=== PATIENT | male | born 1960 | race Caucasian/White ===

== ENCOUNTER 2022-12-23 13:38 | Emergency (ER) | payer OTHER ==
--- OUTSIDE RECORDS SUMMARY | 2022-12-23 13:42 | XMS REPORT | Continuity of Care Document ---
:1960 Author Organization [facility] t Address [address] [place] [place] [address] Care Team Providers Name Role Phone Asked, No Pcp Primary Care Physician Unavailable Speedy Hong Attending Clinician Unavailable STEPHANY PHILLIPS Attending Clinician Unavailable MICHAEL CASEY Attending Clinician Unavailable VIRA MAYBERRY Attending Clinician Unavailable WILLIAM NAGEL M.D. Attending Clinician Unavailable MAGY ECHEVARRIA LCSW Attending Clinician Unavailable [facility] WAITE Attending Clinician Unavailable CHASE EL M.D. Attending Clinician Unavailable RADHA MADRID M.D. Attending Clinician Unavailable ROBERTO RICH M.D. Attending Clinician Unavailable CHEKO THOMPSON M.D. Attending Clinician Unavailable CHASE AVILES Attending Clinician Unavailable KNOW, DOES_NOT Admitting Clinician Unavailable MICHAEL CASEY Admitting Clinician Unavailable Payers Payer Name Policy Type Policy Number Effective Date Expiration Date S ource Problems Condition Condition Condition Status Onset Resolution Last Treating Co mments Source Name Details Category Date Date Treatment Clinician Date REF BY REF BY Diagnosis Active 2018-03-20 Jose Armando EL 02-15 09:47:00 cate Active 00:00: Jayme 02/15/[address] [facility] BDDC- BDDC- Diagnosis Active 2018-02-14 Mem oria ABDOMINAL ABDOMINAL 01-23 11:25:00 l PAIN, PAIN, 00:00: Jayme BLOATING, BLOATING, 00 DIARRHEA DIARRHEA Active 01/23/[address] [facility] R97.20 - R97.20 - Diagnosis Active 2018-05-16 Memoria ELEVATED ELEVATED 01-21 12:10:00 l PROSTATE PROSTATE 00:01: Gustavo n SPECIFIC SPECIFIC 00 ANT ANT Active 01/21/2018 [facility] DIVERTICUL DIVERTICU Diagnosis Active 2018-01-23 Memoria OSIS W/ LOSIS W/ - 13:16:00 l SCAD SCAD 00:00: Jayme Active 00 01/14/[address] [facility] STOMACH STOMACH Diagnosis Active 2016-112018-01-03 Memoria PAIN PAIN 01-01 14:10:00 l Active 00:00: [place] 10/31/[address] [facility] FOLLOW UP FOLLOW Diagnosis Active 2017-05-10 Memoria UP Active 04-19 09:00:00 l 04/19/2017 00:00: Gustavo black [address] BDDC-CRHON BDDC-CRHO Diagnosis Active 2017-05-10 Memoria 'S DISEASE N'S 03-30 09:01:00 l DISEASE 00:00: [place] Active 00 03/30/[address] [facility] BDDC-R10.1 BDDC-R10. Diagnosis Active 2017-04-26 Memoria 3 13 2-16 12:56:00 l EPIGASTRIC EPIGASTRIC 00:00: He r[place] PAIN; PAIN; 00 K62.5 K62.5 HEMOR HEMOR Active 01/11/[address] [facility] R97.2 - R97.2 - Diagnosis Active 2017-01-26 Memoria ELEVATED ELEVATED 12-18 16:34:00 l PROSTATE PROSTATE 00:01: Gustavo n SPECIFIC SPECIFIC 00 ANT ANT Active 7 [facility] DELLA BhardwajKerrick CONSULT CONSULT Diagnosis Active 2017-01-11 Memoria Active 12-13 12:39:00 l 12/13/2016 00:00: Gustavo n [address] FALL FALL Diagnosis Active 2013-112014-10-24 Mem oria Active 12-24 19:52:00 l 10/24/2014 16:00: Gustavo n [address] Hypertensi Hypertens Problem Resolve 2017-12-03 Memoria ve nick d 02:25:16 l disorder, disorder, Herm taj systemic systemic arterial arterial (disorder) (disorder) Resolved Problem 12/03/2017 Medical Group,[facility], EDMS Chest pain Chest Problem Active 2017-12-03 M emoria (finding) pain 02:25:16 l (finding) [place] Active Problem 12/03/2017 Medical Group,[facility], EDMS Irritable Irritable Problem Active 2017-12-03 Memoria colon colon 02:25:16 l (disorder) (disorder) He r[place] Active Problem 12/03/2017 Medical Group,[facility], EDMS Helicobact Helicobac Problem Active 2017-12-03 Memoria er-associa ter-associ 02:25:16 l nell ated Jayme disease disease (disorder) (disorder) Active Problem 12/03/2017 Medical Group,[facility], EDMS Obesity Obesity Problem Active 2017-12-03 Me moria (disorder) (disorder) 02:25:16 l Active Jayme Problem 12/03/2017 Medical Group,[facility], EDMS Raised Raised Problem Active 2017-12-03 Chris joi prostate prostate 02:25:16 l specific specific Gustavo n antigen antigen (finding) (finding) Active Problem 12/03/2017 Medical Group,[facility], EDDC Finding of Finding Problem Active 2017-12-03 Memoria increased of 02:25:16 l blood increased [place] pressure blood (finding) pressure (finding) Active Problem 12/03/2017 [facility] Insomnia Insomnia Problem Active 2017-12-03 Memoria (disorder) (disorder) 02:25:16 l Active Jayme Problem 12/03/2017 Medical Group,[facility] [place] History of History of Problem Resolve UT hypertensi hypertensi d Ph ysici on on ans Allergic Allergic Problem Active UT rhinitis rhinitis Physic i ans Deviated Deviated Problem Active UT nasal nasal Physici septum septum ans Bilateral Bilateral Problem Active UT sensorineu sensorineu Ph ysici ral ral ans hearing hearing loss loss Panic Panic Problem Active UT disorder disorder Physic i ans 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 Diverticul Diverticul Problem Active U T itis, itis, Physici colon colon ans Irritable Irritable Problem Active UT bowel bowel Physici syndrome syndrome ans with with diarrhea diarrhea 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 Physici ans History of History of Problem Resolve UT Acute Acute d Physici diverticul diverticul an s itis of itis of intestine intestine History of History of Problem Active U T diverticul diverticul Ph ysici itis itis ans Colonoscop Colonoscop Problem Active U T y planned y planned Phys ici ans Palpitatio Palpitatio Problem Active U T ns ns Physici ans History of History of Problem Resolve UT depression depression d Ph ysici ans History of History of Problem Resolve UT Migraine Migraine d Physic i ans History of History of Problem Resolve UT peptic peptic d Physici ulcer ulcer ans Weight Weight Problem Active UT loss, loss, Physici unintentio unintentio an s nal nal Enlarged Enlarged Problem Active UT lymph node lymph node Ph ysici in neck in neck ans Weight Weight Problem Active UT loss loss Physici counseling counseling an s , , encounter encounter for for Oropharyng Oropharyng Problem Active U T eal eal Physici dysphagia dysphagia ans Exostosis Exostosis Problem Active UT of left of left Physici external external ans ear canal ear canal History of Past Illness Condition Condition Condition Status Onset Resolution Last Treating Co mments Source Name Details Category Date Date Treatment Clinician Date Discharge Discharge Problem 2013-112014-10-27 2014-10-27 Memoria Diagnosis: Diagnosis: 12-24 05:50:30 05:50:30 l Back spasm Back spasm 06:00: He rmann 10/24/2014 00 10/27/2014 [facility] Allergies, Adverse Reactions, Alerts Allergy Allergy Status Severity Reaction(s) Onset Inactive Treating Comm ents Source Name Type Date Date Clinician ibuprofe DA Active [place] 2019-11 [facility] [place] [facility] [place] ibuprofe DA Active [place] HIVES 2019-11 [facility] [place] [facility] [place] Advil Advil Active Jose Armando Delacruz Family History Family Member Diagnosis Comments Start Date Stop Date Source Mother Family history of malignant [facility] neoplasm Social History Social Habit Start Date Stop Date Quantity Comments Source Social History 2016-12-04 2016-12-04 [facility] 19:21:19 19:21:19 Sex [birth year] [facility] 00:00:00 00:00:00 Smoking Status Start Date Stop Date Source Never smoker [facility] Tobacco smoking consumption [facility] unknown Social History 2014-10-24 22:47:43 2014-10-24 22:47:43 [address] [place] Medications Ordered Filled Start Stop Current Ordering Indication Dosage Frequency Signature Comments Components Source Medication Medication Date Date Medication? Clinician (SIG) Name Name Benztropine Benztropine 2018- Yes MOHAMMED 1 Q0.5D Take 1 UT Mesylate Mesylate 9-16 AHMED M.D. tablet by Physici 0.5 MG Oral 0.5 MG Oral 00:00: mouth ans Tablet Tablet 00 twice a day FLUoxetine FLUoxetine 2018- Yes MOHAMMED TAKE 1 UT HCl - 20 MG HCl - 20 MG 9-16 AHMED M.D. CAPSULE BY Phys[facility] Oral Oral 00:00: MOUTH AT ans Capsule Capsule 00 5pm Daily clonazePAM clonazePAM 2018-0 Yes MOHAMMED Take one UT 1 MG Oral 1 MG Oral 8-20 AHMED M.D. tablet Physici Tablet Tablet 00:00: daily as ans 00 needed for anxiety. traZODone traZODone 2018-0 Yes MOHAMMED TAKE 1-2 UT HCl - 50 MG HCl - 50 MG 7-31 AHMED M.D. TABLETS BY [facility] Oral Tablet Oral Tablet 00:00: MOUTH AT ans 00 BEDTIME NEEDED FOR SLEEP. risperiDONE risperiDONE 2018- Yes MOHAMMED TAKE 1 UT 2 MG Oral 2 MG Oral 7-31 AHMED M.D. TABLET AT [facility] Tablet Tablet 00:00: BEDTIME. ans 00 QUEtiapine QUEtiapine 2018-0 Yes MOHAMMED TAKE 1 UT Fumarate ER Fumarate ER 6-24 AHMED M.D. TABLET BY [facility] 400 MG Oral 400 MG Oral 00:00: MOUTH AT ans Tablet Tablet 00 BEDTIME Extended Extended Release 24 Release 24 Hour Hour PEG-3350/El PEG-3350/El 2019-0 Yes CHASE TAKE UT ectrolytes ectrolytes 1-28 BEHAZIN DIRECTED. Physici 236 GM Oral 236 GM Oral 00:00: M.D. ans Solution Solution 00 Reconstitut Reconstitut ed ed Ciprofloxac Ciprofloxac 2017-11 Yes CHASE Q0.5D TAKE 1 UT in HCl - in HCl - 2-13 BEHAZIN TABLET Ph ysici 500 MG Oral 500 MG Oral 00:00: M.D. TWICE ans Tablet Tablet 00 DAILY. metroNIDAZO metroNIDAZO 2017-11 Yes CHASE 1 Q8H TAKE 1 UT LE 500 MG LE 500 MG 2-13 BEHAZIN TABLET Physici Oral Tablet Oral Tablet 00:00: M.D. EVERY 8 ans 00 HOURS Pentasa 500 Pentasa 500 2017-11 Yes CHASE Q0.25D TAKE 2 UT MG Oral MG Oral 2-10 BEHAZIN CAPSULES 4 Physici Capsule Capsule 00:00: M.D. TIMES ans Extended Extended 00 DAILY. Release Release EnteraGam 5 EnteraGam 5 Yes CHASE 2 QD TAKE 2 UT GM Oral GM Oral 9-26 BEHAZIN PACKET Phys ici Packet Packet 00:00: M.D. DAILY ans 00 metroNIDAZO metroNIDAZO Yes CHASE Q0.3333D TAKE 1 UT LE 500 MG LE 500 MG 7-05 BEHAZIN TABLET 3 Physici Oral Tablet Oral Tablet 00:00: M.D. TIMES ans 00 DAILY UNTIL GONE. Ciprofloxac Ciprofloxac Yes CHASE Q12H TAKE 1 UT in HCl - in HCl - 7-05 BEHAZIN TABLET Ph ysici 500 MG Oral 500 MG Oral 00:00: M.D. EVERY 12 ans Tablet Tablet 00 HOURS DAILY. Trazodone 2016-11 Yes 50 mg = 1 Mem oria Hydrochlori 2-05 tab, PO, l de 50 MG 16:49: Bedtime, # Her kelsey Oral Tablet 00 30 tab, 0 Refill(s), Pharmacy: [facility][id number] omeprazole 2016- Yes 40 mg = 1 Me moria 40 mg oral 2-05 cap, PO, l delayed 16:41: BID, # 180 Herm taj release 05 cap, 1 capsule Refill(s), Pharmacy: [facility] #[id number] losartan 50 2016-11 Yes See Memori a mg oral 2-05 Instructio l tablet 16:38: ns, TAKE 1 Karon nn 33 TABLET BY MOUTH EVERY DAY, # 90 tab, 1 Refill(s), Pharmacy: [facility] #[id number] clarithromy Yes 500 mg = 1 Memoria gen 500 mg 3-14 tab, PO, l oral tablet 21:04: Q12H, X 14 [place] 00 day, # 28 tab, 0 Refill(s), Pharmacy: [facility] #[id number] omeprazole Yes 40 mg = 1 Me moria 40 mg oral 3-14 cap, PO, l delayed 21:04: BID, # 28 Karon nn release 00 cap, 0 capsule Refill(s), Pharmacy: [facility] #[id number] amoxicillin Yes 500 mg = 1 Memoria 500 mg oral 3-14 tab, PO, l tablet 21:04: BID, X 14 Gustavo n 00 day, # 28 tab, 0 Refill(s), Pharmacy: [facility] #[id number] GoLYTELY Yes 240 mL, Memori a oral powder 2-16 PO, l for 19:37: Q15Min, Jayme reconstitut 00 give jug ion for colonoscop y, # 1 ea, 0 Refill(s), Pharmacy: [facility] #[id number] Acetaminoph 2013-11 No 1 tab, Chris joi en 325 MG / 1-30 Route: PO, l Hydrocodone 02:03: Drug Form: Jayme Bitartrate 00 TAB, 5 MG Oral Dosing Tablet Weight [[place] 100, kg, 5/325] ONCE, STAT, Start date: 10/24/14 20:03:00, Stop date: 10/24/14 20:03:00 tramadol 2013-11 Yes 50 mg = 1 Chris joi hydrochlori 1-30 tab, PO, l de 50 MG 01:16: Q6H, Pain, Her kelsey Oral Tablet 00 # 12 tab, 0 Refill(s) Losartan Losartan Yes UT Potassium Potassium Physi ci TABS TABS ans Omeprazole Omeprazole Yes UT CPDR CPDR Physici ans Immunizations Ordered Immunization Filled Immunization Date Status Commen ts Source Name Name influenza virus 2017-08-26 Completed [facility] vaccine, inactivated 00:00:00 Herm taj zoster vaccine live 2016-11-26 Completed Memor ial 00:00:00 Jayme Vital Signs Vital Name Observation Time Observation Value Comments Source BP Systolic 2019-07-24 138 mm[Hg] Location: E; [facility] 08:57:00 Position: Sitting BP Diastolic 2019-07-24 72 mm[Hg] Location: E; [facility] 08:57:00 Position: Sitting Height 2019-07-24 68.5 [in_us] [facility] 08:57:00 Weight 2019-07-24 181.0125 [lb_av] [facility] 08:57:00 Body Mass Index 2019-07-24 27.12 kg/m2 [facility] Calculated 08:57:00 Temperature 2019-07-24 97.9 [degF] Method: Oral [facility] 08:57:00 Heart Rate 2019-07-24 65 /min Location: L [facility] 08:57:00 Brachial Artery; O2 SAT 2019-07-24 99 % Source: RA [facility] 08:57:00 BP Systolic 2019-05-19 161 mm[Hg] [facility] 18:05:00 BP Diastolic 2019-05-19 80 mm[Hg] [facility] 18:05:00 Height 2019-05-19 68 [in_us] [facility] 18:05:00 Weight 2019-05-19 182 [lb_av] [facility] 18:05:00 Body Mass Index 2019-05-19 27.67 kg/m2 [facility] Calculated 18:05:00 Temperature 2019-05-19 98.3 [degF] [facility] 18:05:00 Heart Rate 2019-05-19 63 /min [facility] 18:05:00 Respiration Rate 2019-05-19 16 /min [facility] 18:05:00 O2 SAT 2019-05-19 99 % [facility] 18:05:00 BP Systolic 2019-03-21 157 mm[Hg] [facility] 09:01:00 BP Diastolic 2019-03-21 86 mm[Hg] [facility] 09:01:00 Height 2019-03-21 68 [in_us] [facility] 09:01:00 Weight 2019-03-21 179 [lb_av] [facility] 09:01:00 Body Mass Index 2019-03-21 27.22 kg/m2 [facility] Calculated 09:01:00 Temperature 2019-03-21 98.3 [degF] [facility] 09:01:00 Heart Rate 2019-03-21 78 /min [facility] 09:01:00 Respiration Rate 2019-03-21 16 /min [facility] 09:01:00 O2 SAT 2019-03-21 100 % [facility] 09:01:00 BP Systolic 2019-01-24 107 mm[Hg] Location: LUE; [facility] 13:53:00 Position: Sitting BP Diastolic 2019-01-24 61 mm[Hg] Location: LUE; [facility] 13:53:00 Position: Sitting Height 2019-01-24 68 [in_us] [facility] 13:53:00 Weight 2019-01-24 182 [lb_av] [facility] 13:53:00 Body Mass Index 2019-01-24 27.67 kg/m2 [facility] Calculated 13:53:00 Temperature 2019-01-24 97.9 [degF] Method: Oral [facility] 13:53:00 Heart Rate 2019-01-24 76 /min Location: L [facility] 13:53:00 Brachial Artery; BP Systolic 2019-01-20 166 mm[Hg] Location: LUE; [facility] 08:54:00 Position: Sitting BP Diastolic 2019-01-20 88 mm[Hg] Location: LUE; [facility] 08:54:00 Position: Sitting Height 2019-01-20 68 [in_us] [facility] 08:54:00 Weight 2019-01-20 185.5 [lb_av] [facility] 08:54:00 Body Mass Index 2019-01-20 28.21 kg/m2 [facility] Calculated 08:54:00 Temperature 2019-01-20 98.4 [degF] Method: Oral [facility] 08:54:00 Heart Rate 2019-01-20 62 /min Location: L [facility] 08:54:00 Brachial Artery; Respiration Rate 2019-01-20 17 /min [facility] 08:54:00 O2 SAT 2019-01-20 97 % Source: RA [facility] 08:54:00 BP Systolic 2018-12-27 146 mm[Hg] Location: LUE; [facility] 09:10:00 Position: Sitting BP Diastolic 2018-12-27 74 mm[Hg] Location: LUE; [facility] 09:10:00 Position: Sitting Height 2018-12-27 68 [in_us] [facility] 09:10:00 Weight 2018-12-27 183 [lb_av] [facility] 09:10:00 Body Mass Index 2018-12-27 27.83 kg/m2 [facility] Calculated 09:10:00 Temperature 2018-12-27 98.2 [degF] Method: Oral [facility] 09:10:00 Heart Rate 2018-12-27 78 /min Location: L [facility] 09:10:00 Brachial Artery; BP Systolic 2018-12-18 161 mm[Hg] Location: LUE; [facility] 09:12:00 Position: Sitting BP Diastolic 2018-12-18 79 mm[Hg] Location: LUE; [facility] 09:12:00 Position: Sitting BP Systolic 2018-12-18 197 mm[Hg] Location: RUE; [facility] 09:11:00 Position: Sitting BP Diastolic 2018-12-18 77 mm[Hg] Location: RUE; [facility] 09:11:00 Position: Sitting Height 2018-12-18 69 [in_us] [facility] 09:11:00 Weight 2018-12-18 182.375 [lb_av] [facility] 09:11:00 Body Mass Index 2018-12-18 26.93 kg/m2 [facility] Calculated 09:11:00 Temperature 2018-12-18 98.1 [degF] Method: Oral [facility] 09:11:00 Heart Rate 2018-12-18 61 /min Location: R [facility] 09:11:00 Brachial Artery; BP Systolic 2018-09-23 143 mm[Hg] [facility] 13:07:00 BP Diastolic 2018-09-23 67 mm[Hg] [facility] 13:07:00 Height 2018-09-23 69 [in_us] [facility] 13:07:00 Weight 2018-09-23 179 [lb_av] [facility] 13:07:00 Body Mass Index 2018-09-23 26.43 kg/m2 [facility] Calculated 13:07:00 Temperature 2018-09-23 98.3 [degF] [facility] 13:07:00 Heart Rate 2018-09-23 66 /min [facility] 13:07:00 Respiration Rate 2018-09-23 16 /min [facility] 13:07:00 O2 SAT 2018-09-23 98 % [facility] 13:07:00 BP Systolic 2018-08-21 133 mm[Hg] Location: RUE; [facility] 11:22:00 Position: Sitting BP Diastolic 2018-08-21 71 mm[Hg] Location: RUE; [facility] 11:22:00 Position: Sitting Height 2018-08-21 69 [in_us] [facility] 11:22:00 Weight 2018-08-21 177 [lb_av] [facility] 11:22:00 Body Mass Index 2018-08-21 26.14 kg/m2 [facility] Calculated 11:22:00 Temperature 2018-08-21 98.1 [degF] Method: Oral [facility] 11:22:00 Heart Rate 2018-08-21 58 /min Location: R [facility] 11:22:00 Brachial Artery; Quality: Normal BP Systolic 2018-07-01 146 mm[Hg] Location: LUE; [facility] 17:14:00 Position: Sitting BP Diastolic 2018-07-01 73 mm[Hg] Location: LUE; [facility] 17:14:00 Position: Sitting BP Systolic 2018-07-01 170 mm[Hg] Location: LUE; [facility] 17:13:00 Position: Sitting BP Diastolic 2018-07-01 76 mm[Hg] Location: LUE; [facility] 17:13:00 Position: Sitting Height 2018-07-01 69 [in_us] [facility] 17:13:00 Weight 2018-07-01 178.125 [lb_av] [facility] 17:13:00 Body Mass Index 2018-07-01 26.3 kg/m2 [facility] Calculated 17:13:00 Temperature 2018-07-01 98.3 [degF] Method: Oral [facility] 17:13:00 Heart Rate 2018-07-01 70 /min Location: L [facility] 17:13:00 Brachial Artery; Respiration Rate 2018-07-01 17 /min [facility] 17:13:00 O2 SAT 2018-07-01 98 % Source: RA [facility] 17:13:00 BP Systolic 2018-05-21 128 mm[Hg] Location: LUE; [facility] 16:09:00 BP Diastolic 2018-05-21 67 mm[Hg] Location: LUE; [facility] 16:09:00 Height 2018-05-21 69 [in_us] [facility] 16:09:00 Weight 2018-05-21 176 [lb_av] [facility] 16:09:00 Body Mass Index 2018-05-21 25.99 kg/m2 [facility] Calculated 16:09:00 Temperature 2018-05-21 98.2 [degF] [facility] 16:09:00 Heart Rate 2018-05-21 63 /min [facility] 16:09:00 Respiration Rate 2018-05-21 16 /min [facility] 16:09:00 O2 SAT 2018-05-21 99 % [facility] 16:09:00 BP Systolic 2018-05-06 198 mm[Hg] Location: RLE; [facility] 16:29:00 BP Diastolic 2018-05-06 92 mm[Hg] Location: RLE; [facility] 16:29:00 BP Systolic 2018-05-06 202 mm[Hg] Location: RLE; [facility] 16:28:00 BP Diastolic 2018-05-06 93 mm[Hg] Location: RLE; [facility] 16:28:00 Height 2018-05-06 69 [in_us] [facility] 16:28:00 Weight 2018-05-06 179 [lb_av] [facility] 16:28:00 Body Mass Index 2018-05-06 26.43 kg/m2 [facility] Calculated 16:28:00 Temperature 2018-05-06 98.3 [degF] [facility] 16:28:00 Heart Rate 2018-05-06 72 /min [facility] 16:28:00 Respiration Rate 2018-05-06 18 /min [facility] 16:28:00 BP Systolic 2018-04-29 189 mm[Hg] Location: LUE; [facility] 16:52:00 Position: Sitting BP Diastolic 2018-04-29 86 mm[Hg] Location: LUE; [facility] 16:52:00 Position: Sitting Weight 2018-04-29 175.5 [lb_av] [facility] 16:52:00 Body Mass Index 2018-04-29 25.92 kg/m2 [facility] Calculated 16:52:00 Heart Rate 2018-04-29 64 /min Location: L [facility] 16:52:00 Brachial Artery; Respiration Rate 2018-04-29 18 /min Quality: Normal [facility] 16:52:00 O2 SAT 2018-04-29 99 % Source: [facility] 16:52:00 Weight 2017-11-30 [facility] Gustavo n 14:47:00 BMI Calculated 2017-11-30 [facility] Lois taj 14:47:00 Height 2017-11-30 175.26 cm [facility] Gustavo n 14:47:00 Systolic (mm Hg) 2017-11-30 [facility] He rmann 14:47:00 Diastolic (mm Hg) 2017-11-30 [facility] H ermann 14:47:00 Heart Rate 2017-11-22 [facility] Gustavo n 14:44:00 Systolic (mm Hg) 2017-11-22 [facility] He rmann 14:44:00 Diastolic (mm Hg) 2017-11-22 [facility] H ermann 14:44:00 Weight 2017-11-22 [facility] Gustavo n 14:44:00 Height 2017-10-30 172.72 cm [facility] Gustavo n 15:54:00 BMI Calculated 2017-10-30 [facility] Herm taj 15:54:00 Weight 2017-10-30 [facility] Gustavo n 15:54:00 Systolic (mm Hg) 2017-10-30 [facility] He rmann 15:54:00 Diastolic (mm Hg) 2017-10-30 [facility] H ermann 15:54:00 Temperature Oral 2017-10-30 97.5 F [facility] He rmann (F) 15:54:00 Heart Rate 2017-10-30 [facility] Gustavo n 15:54:00 Heart Rate 2017-04-26 [facility] Gustavo n 18:08:00 Respitory Rate 2017-04-26 [facility] Herm taj 18:08:00 Systolic (mm Hg) 2017-04-26 [facility] He rmann 18:08:00 Diastolic (mm Hg) 2017-04-26 [facility] H ermann 18:08:00 Weight 2017-04-26 [facility] Gustavo n 18:08:00 BMI Calculated 2017-04-26 [facility] Herm taj 18:08:00 Height 2017-04-26 175.26 cm [facility] Gustavo n 18:08:00 BMI Calculated 2017-01-11 [facility] Herm taj 18:47:00 Weight 2017-01-11 [facility] Gustavo n 18:47:00 Height 2017-01-11 175.26 cm [facility] Gustavo n 18:47:00 Heart Rate 2017-01-11 [facility] Gustavo n 18:47:00 Respitory Rate 2017-01-11 [facility] Herm taj 18:47:00 Systolic (mm Hg) 2017-01-11 [facility] He rmann 18:47:00 Diastolic (mm Hg) 2017-01-11 [facility] H ermann 18:47:00 Heart Rate 2014-10-25 [facility] Gustavo n 02:04:00 Diastolic (mm Hg) 2014-10-25 [facility] Sharron ermann 02:04:00 Respitory Rate 2014-10-25 [facility] Herm taj 02:04:00 Temperature Oral 2014-10-25 97.8 F [facility] Miguel rmann (F) 02:04:00 Systolic (mm Hg) 2014-10-25 [facility] Miguel rmann 02:04:00 Respitory Rate 2014-10-25 [facility] Herm taj 00:04:00 Systolic (mm Hg) 2014-10-25 [facility] Miguel rmann 00:04:00 Diastolic (mm Hg) 2014-10-25 [facility] Sharron ermann 00:04:00 Respitory Rate 2014-10-24 [facility] Herm taj 23:26:00 Diastolic (mm Hg) 2014-10-24 [facility] Sharron ermann 23:26:00 Systolic (mm Hg) 2014-10-24 [facility] Miguel rmann 23:26:00 Heart Rate 2014-10-24 Ade Abreuan n 22:48:00 Weight 2014-10-24 Ade Abreuan n 22:29:00 Height 2014-10-24 177.8 cm Ade Chen n 22:29:00 BMI Calculated 2014-10-24 [facility] 22:29:00 Heart Rate 2014-10-24 Ade Abreuan n 22:29:00 Temperature Oral 2014-10-24 98.0 F [facility] Miguel rmann (F) 22:29:00 Procedures Procedure Date / Time Performed Performing Clinician Sourc e [B] CT NECK W/CONT 2018-12-27 00:00:00 [facility] [L] UA with Culture 2018-12-18 00:00:00 [facility] Reflex [QLH] SED RATE BY 2018-12-18 00:00:00 [facility] MODIFIED WESTERGREN [QLH] C-REACTIVE PROTEIN 2018-12-18 00:00:00 [facility] [B] PREALBUMIN 2018-12-18 00:00:00 [facility] [QLH] CBC (INCLUDES 2018-12-18 00:00:00 [facility] DIFF/PLT) [QLH] CMP W/EGFR 2018-12-18 00:00:00 [facility] [Q] IRON, TIBC AND 2018-12-18 00:00:00 [facility] FERRITIN PANEL [QLH] VITAMIN D, 2018-12-18 00:00:00 [facility] 25-HYDROXY, LC/MS/MS [L] TSH w/Reflex 2018-12-18 00:00:00 [facility] Colonoscopy [facility] Ear operations [facility] Knee joint operation [facility] History of [facility] Plan of Care Planned Activity Planned Date Details Comments Source Future Scheduled 2022-12-23 COVID-19 VACCINE (#1) [facility] Test 13:41:02 [code = COVID-19 VACCINE (#1)] Future Scheduled 2022-12-23 Hepatitis C screening [facility] Test 13:41:02 (procedure) [code = [id number]] Future Scheduled 2022-12-23 COLONOSCOPY SCREENING [facility] Test 13:41:02 [code = COLONOSCOPY SCREENING] Future Scheduled 2022-12-23 SHINGLES VACCINES (1 Met [facility] Test 13:41:02 of 2) [code = SHINGLES VACCINES (1 of 2)] Future Scheduled 2022-12-23 INFLUENZA VACCINE Method [facility] Test 13:41:02 [code = INFLUENZA VACCINE] Future Scheduled 2022-11-09 COVID-19 VACCINE (#1) [facility] Test 00:13:26 [code = COVID-19 VACCINE (#1)] Future Scheduled 2022-11-09 Hepatitis C screening [facility] Test 00:13:26 (procedure) [code = [id number]] Future Scheduled 2022-11-09 COLONOSCOPY SCREENING [facility] Test 00:13:26 [code = COLONOSCOPY SCREENING] Future Scheduled 2022-11-09 SHINGLES VACCINES (1 Met [facility] Test 00:13:26 of 2) [code = SHINGLES VACCINES (1 of 2)] Future Scheduled 2022-11-09 INFLUENZA VACCINE Method [facility] Hospital Test 00:13:26 [code = INFLUENZA VACCINE] Future Scheduled 2022-09-28 HEPATITIS B VACCINES Met [facility] Test 03:54:45 (1 of 3 - 3-dose series) [code = HEPATITIS B VACCINES (1 of 3 - 3-dose series)] Future Scheduled 2022-09-28 COVID-19 VACCINE (#1) [facility] Test 03:54:45 [code = COVID-19 VACCINE (#1)] Future Scheduled 2022-09-28 Hepatitis C screening [facility] Test 03:54:45 (procedure) [code = [id number]] Future Scheduled 2022-09-28 COLONOSCOPY SCREENING [facility] Test 03:54:45 [code = COLONOSCOPY SCREENING] Future Scheduled 2022-09-28 SHINGLES VACCINES (1 Met [facility] Test 03:54:45 of 2) [code = SHINGLES VACCINES (1 of 2)] Future Scheduled 2022-09-28 INFLUENZA VACCINE Method [facility] Hospital Test 03:54:45 [code = INFLUENZA VACCINE] Encounters Start End Encounter Admission Attending Care Care Encounter Source Date/Time Date/Time Type Type Clinicians Facility Department ID 2020-11-15 Inpatient MERCEDES HongMACY OPC [id number] [facility] 08:30:00 Speedy 06 [place] [facility] are [facility] 2022-10-12 2022-10-12 Outpatient EL MERCEDES HongMACY OPC [id number] [facility] 10:01:00 10:01:00 Speedy [address] [place] [facility] are [facility] 2021-07-01 2021-07-01 Emergency PHILLIPS, [facility] [id number] [place] 00:00:00 00:00:00 STEPHANY [address] 2020-11-22 2020-11-22 Outpatient MERCEDES HongMACY CTII [id number] [facility] 10:30:00 10:30:00 Speedy 30 [facility] are [facility] 2020-01-21 2020-01-22 Outpatient [facility] [id number] [place] 21:24:00 15:25:00 MICHAEL Delacruz [facility] 2019-11-26 2019-11-27 Emergency MAYBERRY, [facility] [id number] [place] 00:00:00 00:00:00 NATANA [address] 2019-08-20 2019-08-20 Emergency E MHCY MHCY 7511 MHCY 09:33:00 09:33:00 2019-07-24 2019-07-24 HILDA Dumont Multispecia [id number] [place] 09:00:00 09:00:00 t; WILLIAM NAGEL, lty - Ph Balbir DavilaD. 2019-07-22 2019-07-22 Outpatient [facility] [id number] [facility] 14:38:00 14:38:00 2019-06-24 2019-06-24 AppointHILDA Will Multispecia [id number] [place] 18:00:00 18:00:00 t; WILLIAM NAGEL lty - Ph Balbir Davila M.D. 2019-06-18 2019-06-18 AppointHILDA Will [facility] [id number] [place] 08:30:00 08:30:00 t; WILLIAM NAGEL Ph ysici MOHAMMED, M.D. ans M.D. 2019-06-04 2019-06-04 Outpatient [facility] [id number] [facility] 07:36:00 07:36:00 2019-06-03 2019-06-03 HILDA Torres Multispecia [id number] [place] 15:00:00 15:00:00 t; RC BHATTI lty - Phys Juan M Solitario LCSW 2019-05-19 2019-05-19 HILDA Dumont Multispecia [id number] [place] 18:00:00 18:00:00 t; WILLIAM NAGEL lty - Ph Balbir Davila M.D. 2019-04-28 2019-04-28 HILDA Dumont UTP [id number] [place] 18:00:00 18:00:00 t; WILLIAM NAGEL Ph ysici MOHAMMED, M.D. ans M.D. 2019-04-25 2019-04-25 Appointrubén [facility] [id number] [place] 11:45:00 11:45:00 t; [facility] 2019-04-25 2019-04-25 [facility] [id number] [facility] 11:41:00 11:41:00 2019-04-04 2019-04-04 Outpatient MHIE MHIE [id number] [place] 08:00:00 08:00:00 22 cate Delacruz 2019-04-02 2019-04-02 [facility] [id number] [place] 10:10:00 10:10:00 t; Balbir STONE Ph parul Leslie M.D. 2019-04-01 2019-04-01 HILDA Olson [facility] [id number] [place] 08:40:00 08:40:00 t; Balbir GARCIA Ph parul Dorsey M.D. 2019-03-21 2019-03-21 HILDA Dumont [facility] [id number] [place] 09:00:00 09:00:00 t; WILLIAM NAGEL Health and Aleksander THOMAS M.D. Wellness parul [facility] 2019-03-04 2019-03-04 Outpatient MHIE MHIE [id number] [place] 08:00:00 08:00:00 21 l [place] 2019-02-26 2019-02-26 HILDA Dumont [facility] [id number] [place] 08:30:00 08:30:00 t; WILLIAM NAGEL, Ph Balbir Davila M.D. 2019-02-21 2019-02-21 HILDA Olson Cee [id number] [place] 08:20:00 08:20:00 t; Balbir GARCIA [facility] Ph parul Dorsey M.D. 2019-02-06 2019-02-06 Outpatient MHIE MHIE [id number] [place] 08:00:00 08:00:00 20 l [place] 2019-01-24 2019-01-24 HILDA Ragland Otorhinolar [facility] [id number] [place] 13:30:00 13:30:00 t; ROBERTO RICH M.D. yngology - Isak Parks M.D. [facility] 2019-01-20 2019-01-20 HILDA Dumont [facility] [id number] [place] 09:00:00 09:00:00 t; WILLIAM NAGEL Health and Aleksander THOMAS M.D. Wellness parul [facility] 2018-12-27 2018-12-27 Joe RICH [facility] [id number] [place] 15:30:00 15:30:00 t; ROBERTO RICH M.D. P parul Bailey M.D. 2018-12-27 2018-12-27 AppointHILDA Garza Otorhinolar [id number] [place] 09:30:00 09:30:00 t; ROBERTO RICH M.D. yngology - Isak Parks M.D. [facility] 2018-12-18 2018-12-18 Joe EL [facility] [id number] [place] 09:00:00 09:00:00 t; Balbir STNOE Ph parul Leslie M.D. 2018-09-23 2018-09-23 Joe NAGEL [facility] [id number] [place] 13:00:00 13:00:00 t; WILLIAM NAGEL, Merlin and Aleksander THOMAS M.D. Wellness parul [facility] 2018-09-13 2018-09-13 Joe NAGEL [facility] [id number] [place] 09:00:00 09:00:00 t; WILLIAM NAGEL, Ph Balbir Davila M.D. 2018-09-10 2018-09-10 [facility] [id number] [facility] 08:00:00 08:00:00 Valentina Delacruz 2018-08-21 2018-08-21 HILDA Spencer [place] [id number] [place] 11:20:00 11:20:00 t; Balbir STONE Ph bernabe EL, parul STONE M.D. 2018-07-30 2018-07-30 HILDA Dumont [facility] [id number] [place] 16:30:00 16:30:00 t; WILLIAM NAGEL Health and Aleksander THOMAS M.D. Wellness parul [facility] 2018-07-03 2018-07-03 Joe [facility] [id number] [place] 15:30:00 15:30:00 t; [facility] 2018-07-01 2018-07-01 Joe NAGEL [facility] [id number] [place] 17:30:00 17:30:00 t; WILLIAM NAGEL Health and Aleksander THOMAS M.D. Wellness parul [facility] 2018-05-21 2018-05-21 [facility] [id number] [place] 16:00:00 16:00:00 t; WILLIAM NAGEL Health and Physici MOHAMMED, M.D. Wellness parul [facility] 2018-05-06 2018-05-06 [facility] [id number] [place] 16:30:00 16:30:00 t; WILLIAM NAGEL Health and Aleksander THOMAS M.D. Wellness parul [facility] 2018-04-30 2018-04-30 Outpatient MHIE MHIE [id number] [place] 08:45:00 08:45:00 11 cate Delacruz 2018-04-29 2018-04-29 [facility]rub[facility] [id number] [place] 16:00:00 16:00:00 t; WILLIAM NAGEL Health and Physici MOHAMMED, M.D. Wellness parul [facility] 2018-03-20 2018-03-20 [facility] [id number] [place] 09:30:00 09:30:00 t; Bablir STILL ans AMIT, M.D. 2018-03-06 2018-03-06 [facility] [id number] [place] 11:00:00 11:00:00 t; Balbir STILL ans AMIT, M.D. 2018-02-27 2018-02-27 [facility] [id number] [place] 14:00:00 14:00:00 t; WILLIAM NAGEL Health and Physici MOHAMMED, M.D. Wellness parul [facility] 2018-02-14 2018-02-14 [facility] [id number] [place] 11:45:00 11:45:00 t; [facility] 2018-01-28 2018-01-28 Outpatient MHIE MHIE [id number] [place] 07:45:00 07:45:00 18 l [place] 2018-01-23 2018-01-23 Appointmen MARIANN, HILDA UTP [id number] [place] 13:00:00 13:00:00 t; [facility] jonathan teran 2018 2018 Appointrubén EL, HILDA UTP [id number] [place] 13:30:00 13:30:00 t; Balbir STONE parul Leslie M.D. 2018 2018 Outpatient MHIE MHIE [id number] [place] 09:00:00 09:00:00 16 [facility] 2017-12-14 2017-12-14 Outpatient MHIE MHIE [id number] [place] 08:30:00 08:30:00 17 [facility] 2017-12-11 2017-12-11 Outpatient MHIE MHIE [id number] [place] 09:00:00 09:00:00 15 [facility] 2017-11-30 2017-12-01 Outpatient nullFlavo [facility] [id number] [place] 14:30:00 05:59:59 r Cardiology 14 l [facility] 2017-11-30 2017-12-01 Outpt Diag nullFlavo [facility] [id number] [place] 16:09:00 05:59:00 Services r Outpatient 03 l [facility] 2017-11-22 2017-11-23 Outpatient nullFlavo [facility] [id number] [place] 15:15:00 05:59:59 r Urology 13 l [facility] 2017-11-02 2017-11-02 Ambulatory nullFlavo [facility] [id number] [place] 14:00:00 14:00:00 Pre-Reg r Urology 12 l [facility] 2017-10-30 2017-10-31 Outpatient nullFlavo [facility] [id number] [place] 15:45:00 05:59:59 r Primary 10 [facility] 2017-08-10 2017-08-10 Outpatient MHIE MHIE [id number] [place] 08:00:00 08:00:00 09 [facility] 2017-07-26 2017-07-26 Appointrubén EL, HILDA UTP [id number] [place] 14:45:00 14:45:00 t; Balbir STONE Ph parul Leslie M.D. 2017-07-20 2017-07-20 Outpatient MHIE MHIE [id number] [place] 08:00:00 08:00:00 08 [facility] 2017-05-10 2017-05-10 Bedded nullFlavo [facility] [id number] [place] 13:59:00 15:59:00 Outpatient r [place] 08 [facility] 2017-05-10 2017-05-10 HILDA Spencer UTP [id number] [place] 10:00:00 10:00:00 t; Balbir STONE Ph parul Leslie M.D. 2017-04-26 2017-04-27 Outpatient nullFlavo [facility] [id number] Mem[place] 17:58:00 04:59:00 r Jayme 10 l [facility] 2017-04-26 2017-04-26 HILDA Spencer UTP [id number] [place] 09:30:00 09:30:00 t; Balbir STONE Ph, ans NANCY, M.D. 2017-03-01 2017-03-01 HILDA Ragland UTP [id number] [place] 13:00:00 13:00:00 t; ROBERTO RICH M.D. P hysici KUNAL, ans M.D. 2017-03-01 2017-03-01 HILDA Baker UTP [id number] [place] 11:00:00 11:00:00 t; parul Coronado i 2017-02-15 2017-02-16 Outpt Diag nullFlavo [facility] [id number] Mem[place] 13:08:00 04:59:00 Services r Outpatient 02 [facility] 2017-02-09 2017-02-09 Outpatient MHIE MHIE [id number] [place] 08:30:00 08:30:00 02 [facility] 2017-02-06 2017-02-08 Phone nullFlavo [facility] [id number] Mem[place] 21:03:00 04:59:59 Message r [place] 01 l [facility] 2017-02-01 2017-02-01 Bedded nullFlavo [facility] [id number] Mem[place] 16:38:00 20:00:00 Outpatient r [place] 06 [facility] 2017-02-01 2017-02-01 AppointHILDA Stone UTP [id number] [place] 11:00:00 11:00:00 t; Balbir STONE Ph parul Leslie M.D. 2017-01-22 2017-01-22 Outpatient MHIE MHIE [id number] [place] 14:15:00 14:15:00 07 [facility] 2017-01-15 2017-01-15 Outpatient MHIE MHIE [id number] [place] 12:00:00 12:00:00 06 [facility] 2017-01-11 2017-01-12 Outpatient nullFlavo [facility] [id number] Mem[place] 18:39:00 05:59:00 r Jayme 04 [facility] 2017-01-11 2017-01-11 HILDA Spencer UTP [id number] [place] 13:00:00 13:00:00 t; Balbir STONE Ph parul Leslie M.D. 2017-01-04 2017-01-04 Outpatient MHIE MHIE [id number] [place] 08:45:00 08:45:00 05 [facility] 2017-01-01 2017-01-02 Outpt Diag nullFlavo [facility] [id number] [place] 14:19:00 05:59:00 Services r Outpatient 01 [facility] sofia Kerrick 2016-12-18 2016-12-18 Outpatient MHIE MHIE [id number] [place] 15:00:00 15:00:00 04 [facility] 2016-12-14 2016-12-14 Outpatient MHIE MHIE [id number] [place] 09:30:00 09:30:00 03 [facility] 2016-12-04 2016-12-04 Outpatient MHIE MHIE [id number] [place] 13:30:00 13:30:00 01 cate AbreuJayme 2014-10-24 2014-10-25 EC nullFlavo [facility] [id number] Mem[place] 22:28:00 02:05:00 Emergency r [place] 02 [facility] Results Test Description Test Time Test Comments Results Result Comments Source SURGICAL 2022-10-16 16:29:00 Test Item Value Reference Range Interpretation Comme nts SURGICAL RUN DATE: [facility] 1 RUN TIME: 1629 Specimen Inquiry RUN USER: INTERFACE code = PATIENT: SR) AGUSTINA ARMANDO T #: [id number] LOC: [place] U #: [id number] AGE/SX: 62/M ROOM: RE10/12/22REG DR: Baba gary Hong MD : 56 BED: DIS: STATUS: SHAHZAD [facility] TLOC: SPEC #: [id number] RECD: 10/12/221425 STATUS: ELLIE CERON #: [id number] SHANA: 10/12/22- SUBM DR: Speedy Hong MD ENTERED: 10/12/22 SP TYPE: SURGICAL OTHR DR: ORDERED: 69806/2, ANATOMIC SPEC, [id number] TISSUES: A. ANTRUM - ANTRUM BX B. COL ON,SIGMOID - SIGMOID COLON POLYP BX FINAL DIAGNOSIS A. STOMACH, ANTRUM, BIOPSY: - Fragments of antra l type gastric mucosa with minimally active chronic gastritis. - No definite intestinal metaplasia or dys plasia identified. - Properly controlled immunostain for Helicobacter pylori performed on block A is negative for organisms, supporting the diagnosis. B. SIGMOID COLON, POLYPECTOMY: - Fragments of hyperplastic polyp. This immunohistochemical test was developed and its preference characteristicsde termined by [facility] Histology Laboratory,Immunohistochemic al Section. It may not have been cleared or approved by theU.S. Food and Drug Administration. The FDA has determined that such clearanceor approval is not necessary. This test is used for clinical purpose s. Itshould not be regarded as investigational or for research. This laboratory iscertified under the Clinical Laboratory Improvement Amendment of 1988 (CLIA) asqualified to perform high complexity clin ical laboratory testing. GROSS DESCRIPTION A. Received in formalin labeled with the patient's name and date of , designated"antrum bx", are four fragments of soft, pink-wheat tissue, ranging from 0.2 to 0.4 cm ingreatest dimensions. The specimens measure 0.6 x 0.5 x 0.2 cm in aggregate. The specimensare filtered in a mesh bag and entirely submitted in A1. B. Received in formalin labeled with the patient's n julio and date of , designated"sigmoid CP bx", are two fragments of soft, pink-wheat tissue, the first m easuring 0.6 x 0.4x 0.1 cm and the second measuring 0.3 x 0.3 x 0.1 cm. The specimens are filtered in a meshbag and entirely submitted in B1. LC/dm Technical component performed at CONTINUED ON NEXT PAGE RUN DATE: 10/16/22 [facility] LAB * LIVE* PAGE 2 RUN TIME: 1629 Specimen Inquiry RUN USER: INTERFACE SPEC #: [id number] PATIENT: AGUSTINA ARMANDO #[id number] (Continued) GROSS DESCRIPTION (Continued ) [facility],[address] [facility], [facility]429 Immunohist ochemistry: This test was developed and its performancecharacteristics determined by this laborator y. It has not been approved nordoes it need approval by the [place] FDA. Appropriate positive and neg ative controlsare reviewed and judged to be acceptable. This laboratory is certified underthe Clinical Laboratory Improvement Amendments (CLIA-88) as qualified toperform high complexity clinical laborato ry testing. MICROSCOPIC DESCRIPTION Unless gross only, the diagnosis is based on microscopic examination. CLINIC AL INFORMATION Colon cancer screening, gastritis Signed Sonal Ross MD 10/16/22 1379 END OF REPORT - CT ABD PELVIS [id number] 11:09:00 [facility] : 1960 Sex: MPatient Name: AGUSTINA ARMANDO Unit No: [id number] EXAMS: CPT CODE: [id number] CT ABD PELVIS W/CONT 24873 EXAMINATION: - CT ABD PELVIS W/CONT COMPARISON: CT scan performed July HISTORY: Rectal bleeding LOCATION CODE: C3 TECHNIQUE: CT of the Abdomen and Pelvis with intravenous contrast. Axial contrast enhanced images of the abdomen and pelvis were obtained and reviewed in soft tissue, bone and lung windows. Coronal and sagittal reconstructed images were also provided for review. All CT scans are performed using dose optimization techniques as appropriate to a performedexam including one or more of the following: ?Automated exposure control ?Adjustment of the mA and/or kV according to patient size ?Use of iterative reconstruction technique FINDINGS ABDOMEN: The liver, gallbladder and biliary tree, spleen, pancreas, adrenal glands and kidneys are normal. There is no free air, free fluid or lymphadenopathy. Scattered diverticula are seen in the descending colon. Ather omatous plaquing is present in the vessels. Lung bases are clear. Degenerative disc changes are present in the spine. There is bilateral spondylolysis at L5 with associated grade 1 anterolisthesis of L5 on S1. Findings appear to be stable. FINDINGS PELVIS: Urinary bladder is normal. The prostate is prominent measuring 5.2 x 6.1 cm (previously 5.3 x 5.7 cm). The seminal vesicles are normal. There is no free air or free fluid. There is continued thickening of the proximal/mid sigmoid colon without adjacent inflammatory change. Occasional pericolonic lymph nodes measuring up to 7 mm in short axis arestable in appearance. Atheromatous plaquing is present in the vessels and mild arthritic changes arenoted in the hips and sacroiliac joints.. IMPRESSION: Continued nonspecific thickening of the proximal sigmoid colon without inflammatory change identified. A few pericolonic lymph nodes adjacent to the sigmoid are also unchanged and the findings may be related to chronic diverticulosis. Given historyof rectal bleeding, direct visualization may be of benefit. Enlarged prostate Name: JONNY ARMANDO [facility] [place]: [place] [address] [address] [facility] : 1960 Age: 60 Sex: [place] [phone] Loc: [place].CTSII Exam Date: 11/22/2020 Status: REG CLI PH: FAX: PAGE 1 Signed Report (CONTINUED) Patient Name: AGUSTINA ARMANDO Unit No: [id number] EXAMS: CPT CODE: [id number] CT ABD PELVIS W/CONT 45736 (Continued) at 1109 Reported and signed by: Natasha English MD CC: Speedy Hong MD Technologist: Catherine Marrero CTDI: 13.51 DLP: 668.0 Trscr Dt/Tm: 11/22/2020 (1109) by:[email or web address] Electronic Signature Date/Time: 11/22/2020 (1109)Orig Print D/T: S: 11/22/2020 (1112) Name: AGUSTINA ARMANDO [facility] Phys: [place] [address] [address] [facility] : 1960 Age: 60 Sex: [place] [phone] Loc: [place].CTSII Exam Date: 11/22/2020 Status: REG CLI PH: FAX: PAGE 2 Signed ReportCREATININE [id number] 10:38:00 Test Item Value Reference Range Interpretation Comments CREATININE POC (test code = CREATP) 0.9 mg/dL 0.6-1.3 N SURGICAL [id number] 18:43:00 Test Item Value Reference Range Interpretation Comments SURGICAL SPECIMENS (test code = SURG) RUN DATE: 11/17/20 [facility] LAB *LIVE* PAGE 1 RUN TIME: 1842 Specimen Inquiry RUN USER: INTERFACE PATIENT: AGUSTINA ARMANDO LOC: [place] U #: [id number] AGE/SX: 60/M ROOM: RE11/15/20[facility] DR: Speedy Hong MD : 56 BED: DIS: STATUS: SHAHZAD ANDERSON TLOC: SPEC #: [id number] RECD: 11/15/201046 STATUS: ELLIE CERON #: [id number] SHANA: 11/15/20-[address]: Speedy Hong MD ENTERED: 11/15/20-6 SP TYPE: SURG OTHR DR: Ray Latham Sr, MD ORDERED: PATHGM4/4, SPEC STAIN I TISSUES: A. DUODENUM, NOS - DUODENUM BX B. PYLORIC ANTRUM - ANTRUM BX C. COLON, NOS - ASCENDING COLON POLYP BX D. COLON, NOS - LEFT COLON POLYP BX COMMENT Specimen B: A DiffQuick stain for H. pylori shows non-specific staining. An immunohistochemical stain for H. pylori is negative. Special stain and immunostain have adequate controls. Specimen D: Focal mild active colitis is associated with surface erosion and minimal to mild crypt architectural distortion. Related conditions include infectious or ischemic colitis, inflammatory bowel disease. Clinical correlation is necessary. block C: multiple levels DISCLAIMER The Technical Processing and Analysis and Professional Components of this test was completed at [facility], [address] [place] [id number] / / This immunohistochemical test was developed and its preference characteristics determined by [facility] Histology Laboratory, Immunohistochemical Section. It may not have been cleared or approved by the U.S. Food and Drug Administration. The FDA has determined that such clearance or approval is not necessary. This test is used for clinical purposes. It should not be regarded as investigational or for research. This laboratory is certified under the Clinical Laboratory Improvement Amendment of 1988 (CLIA) as qualified to perform high complexity clinical laboratory testing. FINAL MICROSCOPIC DIAGNOSIS A) DUODENUM, BIOPSY: PEPTIC DUODENITIS NEGATIVE FOR DYSPLASIA AND MALIGNANCY B) STOMACH, ANTRUM, BIOPSY: CHRONIC INACTIVE GASTRITIS NEGATIVE FOR INTESTINAL METAPLASIA, DYSPLASIA AND MALIGNANCY CONTINUED ON NEXT PAGE RUN DATE: 11/17/20 [facility] LAB *LIVE* PAGE 2 RUN TIME: 1843 Specimen Inquiry RUN USER: INTERFACE SPEC #: [id number] PATIENT: AGUSTINA ARMANDO #[id number] (Continued) FINAL MICROSCOPIC DIAGNOSIS (Continued) NO H. PYLORI ORGANISMS IDENTIFIED (DIFF QUIK, IHC) C) ASCENDING COLON POLYP, BIOPSY: COLON MUCOSA WITH HYPERPLASTIC CHANGES D) LEFT COLON, BIOPSY: FOCAL MILD ACTIVE COLITIS AND HYPERPLASTIC CHANGES MILD CRYPT ARCHITECTURAL DISTORTION NEGATIVE FOR GRANULOMAS, DYSPLASIA AND MALIGNANCY [facility] [address] X4, [address], 09[address] GROSS DESCRIPTION Clinical history: nausea, colon cancer screening Four specimens are received in formalin, each labeled with the patient's name (Nilsa) and medical record number. Specimen A is labeled "duodenal biopsy" and consists of three wheat-pink mucosal biopsy fragments, each measuring 0.3 cm in greatest dimension. The specimen is filtered in a histobag and entirely submitted in cassette A. Specimen B is labeled "antrum" and consists of multiple wheat-pink mucosal biopsy fragments that range from 0.1 to 0.3 cm in greatest dimensions. The specimen is filtered in a histobag and entirely submitted in cassette B. Specimen C is labeled "ascending colon polyp biopsy" and consists of two 0.2 cm in greatest dimension wheat-pink mucosal biopsy fragments which are filtered in a histobag and entirely submitted in cassette C. Specimen D is labeled "left colon biopsy" and consists of five wheat-red mucosal biopsy fragments that range from less than 0.1 to 0.4 cm in greatest dimensions. The specimen is filtered in a histobag and entirely submitted in cassette D. Signed SIGNATURE ON FILE Lidia Uriarte MD 11/17/20 1843 END OF REPORT Novel Coronavirus 15:19:00 Test Item Value Reference Range Interpretation Comments Novel Coronavirus Not Detected Not Detected Negative r esults do not 2019 nCoV (test preclude 201 9-nCoV code = COVID19) infection an dshould not be used as the sole basis for treat ment or otherpatient ma nagement decisions. Nega tive results must be combined with clinical observations, p atient history, andepidemiologi reji information.Shannan ting was performed using the Aptima SARS-CoV -2 assay.This nucl eic acid amplification t est was developed and itsperformance characteristics determined by [facility]. Nucleic acid amplification t ests include PCRand TMA. This test has not be en FDA cleared or appr oleg.This test has been a uthorized by FDA under an Emergency UseAuthorizatio n (EUA). This test is on ly authorized fort he duration of [place] the declaration [place] t circumstancesex ist justifying the authorization o f the emergency use o fin vitro diagnostic test s for detection of SA RS-CoV-2 virusand/or luisa gnosis of COVID-19 infect ion under udkaqln701(b)(1 ) of the Act, 21 U.S.C. 360bbb-3(b) (1) , unless theauthorizatio n is terminated or r evoked sooner.When luisa gnostic testing is nega tive, the possibility of afalse negative result should be considered i n the contextof a pat ient's recent exposure s and the presence ofclin ical signs and sympt oms consistent with COVID-19. Anind ividual without symptom s of COVID-19 and wh o is notshedding GALEN S-CoV-2 virus would exp ect to have a negative (not detected) resul t in this assay.Performed At: [facility] [address] [id number] yaniv Buckley MD Ph:[phone] Novel Coronavirus [id number] 07:15:00 Test Item Value Reference Range Interpretation Comments Novel Coronavirus Not Detected Not Detected Negative r esults do not 2019 nCoV (test preclude 201 9-nCoV code = COVID19) infection an dshould not be used as the sole basis for treat ment or otherpatient ma nagement decisions. Nega tive results must be combined with clinical observations, p atient history, andepidemiologi reji information.Shannan ting was performed using the Aptima SARS-CoV -2 assay.This nucl eic acid amplification t est was developed and itsperformance characteristics determined by [facility]. Nucleic acid amplification t ests include PCRand TMA. This test has not be en FDA cleared or appr oleg.This test has been a uthorized by FDA under an Emergency UseAuthorizatio n (EUA). This test is on ly authorized fort [place] of [place] the declaration [place] t circumstancesex ist justifying the authorization o f the emergency use o fin vitro diagnostic test s for detection of SA RS-CoV-2 virusand/or luisa gnosis of COVID-19 infect ion under xjzhzku027(b)(1 ) of the Act, 21 U.S.C. 360bbb-3(b) (1) , unless theauthorizatio n is terminated or r evoked sooner.When luisa gnostic testing is nega tive, the possibility of afalse negative result should be considered i n the contextof a pat ient's recent exposure s and the presence ofclin ical signs and sympt oms consistent with COVID-19. Anind ividual without symptom s of COVID-19 and wh o is notshedding GALEN S-CoV-2 virus would exp ect to have a negative (not detected) resul t in this assay.Performed At: [facility] [address] [id number] yaniv Buckley MD Ph:[phone] CT Neck soft tissue w contrast [id number] 14:18:00EXAM: CT NECK WITH CONTRASTDATE: 01/09/2019 at 3:15 PMINDICATION: 59-year-old male patient presentingwith enlarged neck lymph nodesand weight loss.COMPARISON: None availableTECHNIQUE: Volumetric CT of the neck is acquired following intravenousadministration of contrast. Axial, coronal and sagittal images are provided.IV contrast: 100 mL of Omnipaque 350.DLP: 831 mGy-cm.FINDINGS:A well- defined, mildlyenlarged lymph node is seen within the rightsupraclavicular region (Vb), measuring up to 11 mm in the short axis [series 2,image 102; series 300B, image 58].The nasopharynx, oropharynx and oral cavity are normal. The larynx, hypopharynxand thyroid gland are normal.The salivary glands including the parotid and submandibular glands are normal.Imaged portions of the paranasal sinuses and mastoid air cells are clear.Imaged portions of the brain and orbits are unremarkable.No other pathologically enlarged lymph nodes are identified.Osseous structures are normal.The lung apices are clear.IMPRESSION:Rightsupraclavicular asymmetrically enlarged lymph node is seen, which can bebetter evaluated with high-resolution soft tissue ultrasound.No other abnormal or suspicious lymph nodes identified in the neck or mediastinum.--This report was dictated by a Line Analyst/Fellow/Physician Assistant Athletic Trainer. Ihave personallyreviewed the images as well as the interpretation and agree with the findings.Read by: Roberto Clarke Resident/Fellow/PhysicianAssistant: Roberto Dwyerictated Tano e/time: 01/09/19 16:29Electronically Signed by: Carl Barney MD 01/09/1916:50FINAL REPORT[facility]] SED RATE BY MODIFIED CARROL 2018-12-18 10:13:01 Test Item Value Reference Range Interpretation Comments Sedimentation Rate (test code = 3 {mm/hr} 0-15 49244-0) [facility]] CMP [id number] 10:13:01 Test Item Value Reference Range Interpretation Comments Sodium Level 141 {mEq/l} 135-145 (test code = 2951-2) Potassium Level 4.2 {mEq/l} 3.5-5.1 (test code = 2823-3) Chloride Level 106 {mEq/l} 95-109 (test code = 5-0) Carbon Dioxide 28 {mEq/l} 24-32 (test code = 2027-9) AGAP (test code = 11.2 {mEq/l} 10.0-20.0 23295-3) Glucose Lvl (test 84 mg/dl 70-99 Adult refe rence range code = 2345-7) values reflec t the clinical guidel inesof the [place] Diabet es Association. Creatinine Lvl 1.00 mg/dl 0.50-1.40 (test code = 2160-0) Blood Urea 20 mg/dl 7-22 Nitrogen (test code = 3094-0) BUN/Creatinine 20 6-25 Ratio (test code = 3097-3) Total Protein 6.9 g/dl 6.4-8.4 (test code = 2885-2) Albumin Lvl (test 4.1 g/dl 3.5-5.0 code = 1751-7) Globulin (test 2.8 g/dl 2.7-4.2 code = 33382-7) A/G Ratio (test 1.5 0.7-1.6 code = 1759-0) Calcium Level 9.5 mg/dl 8.5-10.5 Total (test code = 88154-2) ALT (test code = 27 u/l 0-65 1743-4) AST (test code = 17 u/l 0-37 28190-7) Bili Total (test 0.4 mg/dl 0.2-1.3 code = 1974-2) Alk Phos (test 98 u/l 39-136 code = 1783-0) eGFR (test code = 81 The eGFR i s calculated 89407-5) {ML/MIN/1.7} using the CKD-E PI formula. In mos t young, healthyindividu als the eGFR will be >9 0 mL/min/1.73m2. The eGFR declines with a ge. AneGFR of 60-89 may be normal in some population s, particularly th e elderly, forwhom the CKD -EPI formula has not been extensively mahesh idated. Use of the eGFR isnot recommended in the following populations:Ind ividuals with unstable c reatinine concentrations, including patient s and those with seri ous co-morbid conditions.Zohra ents with extremes in mus kaitlynn mass or diet.The tano a above are obtained fr om the National Kidney Disease Education Progr am(NKDEP) which hi huertas recommends that when the eGFR is used in patientswith ex tremes of body mass index for purposes of janae g dosing, the eGFR should be multiplied by t he estimated BMI. [facility]] TSH, 3RD GENERATION W/REFLEX TO [id number] 10:13:01 Test Item Value Reference Range Interpretation Comments TSH (test code = 01404-6) 2.540 {uIU/ml} 0.360-3.740 [facility]] C-REACTIVE [id number] 10:13:01 Test Item Value Reference Range Interpretation Comments CRP (test code = CRP) <2.9 <=2.9 [facility][H] Iron, TIBC \\T\\ [id number] 10:13:01 Test Item Value Reference Range Interpretation Comments Iron (test code = 2498-4) 71 ug/dL 45-160 % [place] (test code = 2502-3) 20 % 12-57 TIBC (test code = 2500-7) 351 ug/dL 228-428 UIBC (test code = UIBC) 280 ug/dL 110-370 Ferritin Lvl (test code = 2276-4) 54 ng/ml 22-275 [facility]] URINALYSIS, COMPLETE W/REFLEX TO [id number] 10:13:01 Test Item Value Reference Range Interpretation Comments UA Color (test code = 5778-6) Ltyellow UA Turbidity (test code = 73901-0) Clear Clear UA Spec Grav (test code = 5810-7) 1.013 <=1.030 UA pH (test code = 5803-2) 7.0 5.0-8.0 UA Protein (test code = 00956-6) Negative Negative UA Glucose (test code = 25564-4) Negative Negative UA Ketones (test code = 77545-3) Negative Negative UA Bili (test code = 5770-3) Negative Negative UA Blood (test code = 5794-3) Negative Negative UROBILINOGEN (test code = 50446-4) <=1.0 0.1-1.0 UA Nitrite (test code = 5802-4) Negative Negative UA Leuk Est (test code = 5799-2) Negative Negative UA RBC (test code = 53106-2) 1 {/HPF} 0-2 UA WBC (test code = 12359-6) <1 0-5 UA Sq Epi (test code = 81421-9) None Seen Few [facility]] CBC (INCLUDES DIFF/PLT)2018-12-18 10:13:01 Test Item Value Reference Range Interpretation Comments WBC (test code = 6690-2) 7.5 {K/CMM} 3.7-10.4 RBC (test code = 789-8) 4.81 {M/CMM} 4.70-6.10 Hgb (test code = 718-7) 14.6 g/dl 14.0-18.0 Hct (test code = 57685-3) 42.7 % 42.0-54.0 MCV (test code = 787-2) 88.8 fL 80.0-94.0 MCH (test code = 785-6) 30.3 pg 27.0-31.0 MCHC (test code = 786-4) 34.1 g/dl 32.0-36.0 RDW (test code = 788-0) 14.0 % 11.5-14.5 Platelet (test code = 10198-7) 225 {K/CMM} 133-450 Mean Platelet Volume (test code 7.8 fL 7.4-10.4 = 32215-3) [facility]] [id number] 10:13:01 Test Item Value Reference Range Interpretation Comments Segmented Neutrophils (test code 52.6 % 45.0-75.0 = 91741-8) Monocytes (test code = 30409-8) 8.7 % 2.0-12.0 Lymphocytes (test code = 45258-2) 35.1 % 20.0-40.0 Eosinophils (test code = 96532-4) 3.3 % 0.0-4.0 Basophils (test code = 706-2) 0.3 % 0.0-1.0 Segs-Bands # (test code = 4.0 {K/CMM} 1.5-8.1 79437-2) Lymphocytes # (test code = 2.6 {K/CMM} 1.0-5.5 35549-6) Monocytes # (test code = 39863-4) 0.7 {K/CMM} 0.0-0.8 Eosinophils # (test code = 0.2 {K/CMM} 0.0-0.5 86254-1) RBC Morphology (test code = RBC Normal Morphology) Plt Morphology (test code = Plt Normal Morphology) [facility]] VITAMIN D, 25-HYDROXY, LC/MS/[id number] 10:13:01 Test Item Value Reference Range Interpretation Comments Vitamin D, 25-OH, 40.6 ng/ml 30.0-100.0 Reference range is based Total (test code on recommen dations in the = Vitamin D, EndocrineSociet y Clinical 25-OH, Total) Practice Guide line (J Clin Endocrinol Efgls0116;96:19 11-1930) [facility]
[2022-12-23] MEDS ORDERED: MORPHINE 4 MG/ML SYR ONE (14:07)
[2022-12-23] MEDS ORDERED: ONDANSETRON 4 MG/2 ML VIAL ONE (14:08)
--- NOTE | 2022-12-23 15:07 | RAD REPORT ---
EXAM DESCRIPTION: RAD - Pelvis - 12/23/2022 2:17 pm CLINICAL HISTORY: Pelvic pain FINDINGS: No fracture or dislocation is seen. If the patient continues to have symptoms to suggest an occult fracture then MRI would be recommended
--- NOTE | 2022-12-23 15:08 | RAD REPORT ---
EXAM DESCRIPTION: RAD - Hip Left 2 View - 12/23/2022 2:18 pm CLINICAL HISTORY: Left hip pain FINDINGS: No fracture or dislocation is seen. Mild osteoarthritis left hip
[2022-12-23] MEDS ORDERED: HYDROCODONE/APAP 10/325 TAB ONE (15:57)
[2022-12-23] MEDS ORDERED: METHOCARBAMOL 1,000 MG/10 ML VIAL ONE (15:57)
[2022-12-23] MEDS ORDERED: NA CHLORIDE 0.9% 100 ML ONE (15:58)
[2022-12-23] MEDS ORDERED: KETOROLAC 30 MG/ML INJ ONE (15:58)
--- NOTE | 2022-12-23 16:31 | RAD REPORT ---
EXAM DESCRIPTION: CT - Hip Left Wo Con - 12/23/2022 4:12 pm CLINICAL HISTORY: Left hip pain status post fall COMPARISON: December 23, 2022 x-ray TECHNIQUE: Computed axial tomography left hip obtained with coronal and sagittal reconstruction. All CT scans are performed using dose optimization technique as appropriate and may include automated exposure control or mA/KV adjustment according to patient size. FINDINGS: No fracture or dislocation seen. No significant left hip joint effusion. Muscles are normal size and density. No subcutaneous hematoma. Spondylolysis L5. Mild anterior subluxation of L5 on S1 Prostate gland is markedly enlarged. IMPRESSION: Hip fracture not seen
--- NOTE | 2022-12-23 16:51 | ER ---
Nurse's Notes [facility] Name: Jean Paul Ash Age: 62 yrs Sex: Male : 1960 Arrival Date: 12/23/2022 Time: 13:49 Bed 14 Private MD: Diagnosis: Pain in left hip Presentation: 12/23 13:40 Chief complaint: Patient states: patient states has left hip pain heard a pop as he was db climbing through a window. Denies injury states turned it in a weird angle EMS states: per EMS patient unable to ambulate on scene due to the pain. patient reports that he walked a little sat down then couldn't get back up. Coronavirus screen: Vaccine status: Patient reports being unvaccinated. Client denies travel out of the [place] in the last 14 days. At this time, the client does not indicate any symptoms associated with coronavirus-19. Ebola Screen: Patient negative for fever greater than or equal to 101.5 degrees Fahrenheit, and additional compatible Ebola Virus Disease symptoms Patient denies exposure to infectious person. Patient denies travel to an Ebola-affected area in the 21 days before illness onset. No symptoms or risks identified at this time. Initial Sepsis Screen: Does the patient meet any 2 criteria? No. Patient's initial sepsis screen is negative. Does the patient have a suspected source of infection? No. Patient's initial sepsis screen is negative. Risk Assessment: Do you want to hurt yourself or someone else? Patient reports no desire to harm self or others. Onset of symptoms was December 23, 2022. 13:40 Method Of Arrival: EMS: [facility] db 13:40 Acuity: DERREK 3 db Triage Assessment: 13:55 General: Appears in no apparent distress. comfortable, Behavior is calm, cooperative. db Pain: Complains of pain in left leg, left hip Pain currently is 7 out of 10 on a pain scale. at worst was 9 out of 10 on a pain scale. EENT: No deficits noted. No signs and/or symptoms were reported regarding the EENT system. Neuro: No deficits noted. Level of Consciousness is awake, alert, obeys commands, Oriented to person, place, time, situation. Cardiovascular: No deficits noted. Respiratory: No deficits noted. Airway is patent Respiratory effort is even, unlabored, Respiratory pattern is regular, symmetrical. GI: No deficits noted. No signs and/or symptoms were reported involving the gastrointestinal system. Musculoskeletal: Circulation, motion, and sensation intact. Capillary refill < 3 seconds, Range of motion: limited in left hip Reports pain in left leg. Historical: - Allergies: 13:55 Ibuprofen; db - Home Meds: 13:55 losartan oral [Active]; trazadone [Active]; db - PMHx: 13:55 Hypertensive disorder; Irritable bowel syndrome; db - PSHx: 13:55 Appendectomy; Operative procedure on knee; db - Immunization history:: Adult Immunizations unknown, Client reports having NOT received the Covid vaccine. - Social history:: Smoking status: unknown. Screenin:24 [facility] ED Fall Risk Assessment (Adult) History of falling in the last 3 months, db including since admission No falls in past 3 months (0 pts) Confusion or Disorientation No (0 pts) Intoxicated or Sedated No (0 pts) Impaired Gait No (0 pts) Mobility Assist Device Used No (0 pt) Altered Elimination No (0 pt) Score/Fall Risk Level 0 - 2 = Low Risk Oriented to surroundings, Maintained a safe environment. Abuse screen: Denies threats or abuse. Denies injuries from another. Nutritional screening: No deficits noted. Tuberculosis screening: No symptoms or risk factors identified. Assessment: 13:59 Reassessment: Patient appears in no apparent distress at this time. Patient and/or db family updated on plan of care and expected duration. Pain level reassessed. Patient is alert, oriented x 3, equal unlabored respirations, skin warm/dry/pink. General: Appears in no apparent distress. comfortable, Behavior is calm, cooperative, appropriate for age, quiet. Pain: Complains of pain in left leg and left hip. Neuro: No deficits noted. Level of Consciousness is awake, alert, obeys commands, Oriented to person, place, time, situation, Speech is normal. Cardiovascular: Capillary refill. Respiratory: No deficits noted. Airway is patent Respiratory effort is even, labored. GI: No deficits noted. No signs and/or symptoms were reported involving the gastrointestinal system. 15:08 Reassessment: Patient appears in no apparent distress at this time. Patient and/or db family updated on plan of care and expected duration. Pain level reassessed. Patient is alert, oriented x 3, equal unlabored respirations, skin warm/dry/pink. 15:50 Reassessment: Patient appears in no apparent distress at this time. Patient and/or db family updated on plan of care and expected duration. Pain level reassessed. Patient is alert, oriented x 3, equal unlabored respirations, skin warm/dry/pink. Pain: Pain currently is 8 out of 10 on a pain scale. 15:55 Reassessment: patient to CT. db 17:05 Reassessment: Patient appears in no apparent distress at this time. Patient and/or db family updated on plan of care and expected duration. Pain level reassessed. Patient is alert, oriented x 3, equal unlabored respirations, skin warm/dry/pink. patient fitted for crutches. General: Appears in no apparent distress. comfortable. Vital Signs: 13:40 BP 199 / 89; Pulse 74; Resp 16; Temp 98.5(O); Pulse Ox 100% on R/A; Weight 81.65 kg; db Height 5 ft. 9 in. (175.26 cm); Pain 9/10; 14:15 BP 190 / 85; Pulse 70; Resp 16; Pulse Ox 98% on R/A; db 15:00 BP 173 / 78; Pulse 86; Resp 16; Pulse Ox 98% on R/A; db 17:14 BP 173 / 79; Pulse 56; Resp 18; Pulse Ox 99% on R/A; db 13:40 Body Mass Index 26.58 (81.65 kg, 175.26 cm) db 13:40 patient takes BP medication did not take medications today db ED Course: 13:49 Patient arrived in ED. eb 13:51 Cecy Perez, ASHUTOSH is Primary Nurse. db 13:55 Triage completed. db 13:55 Low Kauffman MD is Attending Physician. kdr 13:58 Arm band placed on right wrist. Patient placed in an exam room. db 14:19 Pelvis XRAY In Process Unspecified. EDMS 14:19 Hip Left 2 View XRAY In Process Unspecified. EDMS 14:20 Inserted saline lock: 20 gauge in right antecubital area, using aseptic technique. db Blood collected. 16:14 Hip Left Wo Con In Process Unspecified. EDMS 17:15 Patient has correct armband on for positive identification. Bed in low position. Call db light in reach. Side rails up X2. Pulse ox on. NIBP on. 17:15 No provider procedures requiring assistance completed. IV discontinued, intact, db bleeding controlled, No redness/swelling at site. Administered Medications: 14:20 Drug: morphine 4 mg Route: IVP; Infused Over: 4 mins; Site: right antecubital; db 15:07 Follow up: Response: No adverse reaction db 14:20 Drug: Zofran (Ondansetron) 4 mg Route: IVP; Site: right antecubital; db 15:07 Follow up: Response: No adverse reaction db 16:20 Drug: [place] (HYDROcodone-acetaminophen) 10 mg-325 mg 1 tabs Route: PO; db 16:47 Follow up: Response: No adverse reaction db 16:20 Drug: Robaxin (methocarbamol) 1 grams Route: IVPB; Infused Over: 1 hrs; Site: right db antecubital; 17:15 Follow up: Response: No adverse reaction; IV Status: Completed infusion; IV Intake: db 100ml 16:20 Drug: Ketorolac 10 mg 10 mg Route: IVP; Site: right antecubital; db 16:48 Follow up: Response: No adverse reaction db Medication: 17:15 VIS not applicable for this client. db Intake: 17:15 IV: 100ml; Total: 100ml. db Outcome: 16:50 Discharge ordered by . kdr 17:15 Discharged to home ambulatory. db 17:15 Condition: stable 17:15 Discharge instructions given to patient, family, Instructed on discharge instructions, follow up and referral plans. Demonstrated understanding of crutch walking, Prescriptions given X 2. 17:37 Patient left the ED. db Signatures: Dispatcher [employer] EDMS Low Kauffman MD MD [facility] Qi Jacques Danielle, RN RN db
--- NOTE | 2022-12-23 16:51 | EDPHYS ---
Physician Documentation [facility] Name: Jean Paul Ash Age: 62 yrs Sex: Male : 1960 Arrival Date: 12/23/2022 Time: 13:49 Bed 14 Private MD: ED Physician Low Kauffman HPI: 12/23 19:31 This 62 yrs old Male presents to ER via EMS with complaints of Hip Pain. kdr 19:31 The patient or guardian reports decreased range of motion, an injury, pain, possible kdr [place], sustained from Patient was climbing through a window with his leg at an odd angle when he heard a pop in his left hip joint The patient is able to self ambulate. The patient is able to bear partial body weight. There is no radiation of the patient's discomfort. The complaints affect the left iliac crest and left hip. Onset: The symptoms/episode began/occurred suddenly, just prior to arrival. Modifying factors: The symptoms are alleviated by nothing, the symptoms are aggravated by any movement, weight bearing. Associated signs and symptoms: Loss of consciousness: the patient experienced no loss of consciousness, Pertinent positives: None. Pertinent negatives: None. Severity of symptoms: At their worst the symptoms were moderate, severe, incapacitating, in the emergency department the symptoms have improved, moderately. The patient has not experienced similar symptoms in the past. The patient has not recently seen a physician. Historical: - Allergies: 13:55 Ibuprofen; db - Home Meds: 13:55 losartan oral [Active]; trazadone [Active]; db - PMHx: 13:55 Hypertensive disorder; Irritable bowel syndrome; db - PSHx: 13:55 Appendectomy; Operative procedure on knee; db - Immunization history:: Adult Immunizations unknown, Client reports having NOT received the Covid vaccine. - Social history:: Smoking status: unknown. ROS: 19:31 Constitutional: Negative for fever, chills, and weight loss, Eyes: Negative for injury, kdr pain, redness, and discharge, ENT: Negative for injury, pain, and discharge, Neck: Negative for injury, pain, and swelling, Cardiovascular: Negative for chest pain, palpitations, and edema, Respiratory: Negative for shortness of breath, cough, wheezing, and pleuritic chest pain, Abdomen/GI: Negative for abdominal pain, nausea, vomiting, diarrhea, and constipation, Back: Negative for injury and pain, : Negative for injury, bleeding, discharge, and swelling, Skin: Negative for injury, rash, and discoloration, Neuro: Negative for headache, weakness, numbness, tingling, and seizure activity. Psych: Negative for depression, anxiety, suicide ideation, homicidal ideation, and hallucinations, Allergy/Immunology: Negative for hives, rash, and allergies, Endocrine: Negative for neck swelling, polydipsia, polyuria, polyphagia, and marked weight changes, Hematologic/Lymphatic: Negative for swollen nodes, abnormal bleeding, and unusual bruising. 19:31 MS/extremity: Positive for injury or acute deformity, decreased range of motion, pain, of the left iliac crest and left hip. Exam: 19:31 Constitutional: This is a well developed, well nourished patient who is awake, alert, kdr and in no acute distress. Head/Face: Normocephalic, atraumatic. Neck: Trachea midline, no thyromegaly or masses palpated, and no cervical lymphadenopathy. Supple, full range of motion without nuchal rigidity, or vertebral point tenderness. No Meningismus. Chest/axilla: Normal chest wall appearance and motion. Nontender with no deformity. No lesions are appreciated. Cardiovascular: Regular rate and rhythm with a normal S1 and S2. No gallops, murmurs, or rubs. Normal PMI, no JVD. No pulse deficits. Respiratory: Lungs have equal breath sounds bilaterally, clear to auscultation and percussion. No rales, rhonchi or wheezes noted. No increased work of breathing, no retractions or nasal flaring. Abdomen/GI: Soft, non-tender, with normal bowel sounds. No distension or tympany. No guarding or rebound. No evidence of tenderness throughout. Back: No spinal tenderness. No costovertebral tenderness. Full range of motion. Skin: Warm, dry with normal turgor. Normal color with no rashes, no lesions, and no evidence of cellulitis. Neuro: Awake and alert, GCS 15, oriented to person, place, time, and situation. Cranial nerves II-XII grossly intact. Motor strength 5/5 in all extremities. Sensory grossly intact. Cerebellar exam normal. Normal gait. Psych: Awake, alert, with orientation to person, place and time. Behavior, mood, and affect are within normal limits. 19:31 Musculoskeletal/extremity: Extremities: grossly normal except: noted in the left iliac crest and left hip: decreased ROM, pain, tenderness. Vital Signs: 13:40 BP 199 / 89; Pulse 74; Resp 16; Temp 98.5(O); Pulse Ox 100% on R/A; Weight 81.65 kg; db Height 5 ft. 9 in. (175.26 cm); Pain 9/10; 14:15 BP 190 / 85; Pulse 70; Resp 16; Pulse Ox 98% on R/A; db 15:00 BP 173 / 78; Pulse 86; Resp 16; Pulse Ox 98% on R/A; db 17:14 BP 173 / 79; Pulse 56; Resp 18; Pulse Ox 99% on R/A; db 13:40 Body Mass Index 26.58 (81.65 kg, 175.26 cm) db 13:40 patient takes BP medication did not take medications today db MDM: 16:50 Patient medically screened. kdr 19:31 Data reviewed: vital signs, nurses notes. kdr 12/23 13:57 Order name: Pelvis XRAY; Complete Time: 15:18 kdr 12/23 13:57 Order name: Hip Left 2 View XRAY; Complete Time: 15:18 kdr 12/23 15:29 Order name: Hip Left Wo Con; Complete Time: 16:43 EDMS 12/23 15:20 Order name: Crutches; Complete Time: 17:37 kdr Administered Medications: 14:20 Drug: morphine 4 mg Route: IVP; Infused Over: 4 mins; Site: right antecubital; db 15:07 Follow up: Response: No adverse reaction db 14:20 Drug: Zofran (Ondansetron) 4 mg Route: IVP; Site: right antecubital; db 15:07 Follow up: Response: No adverse reaction db 16:20 Drug: Ona (HYDROcodone-acetaminophen) 10 mg-325 mg 1 tabs Route: PO; db 16:47 Follow up: Response: No adverse reaction db 16:20 Drug: Robaxin (methocarbamol) 1 grams Route: IVPB; Infused Over: 1 hrs; Site: right db antecubital; 17:15 Follow up: Response: No adverse reaction; IV Status: Completed infusion; IV Intake: db 100ml 16:20 Drug: Ketorolac 10 mg 10 mg Route: IVP; Site: right antecubital; db 16:48 Follow up: Response: No adverse reaction db Disposition Summary: 12/23/22 16:50 Discharge Ordered Location: Home kdr Problem: new kdr Symptoms: have improved kdr Condition: Stable kdr Diagnosis - Pain in left hip kdr Followup: kdr - With: Private Physician - When: 2 - 3 days - Reason: If symptoms return, Further diagnostic work-up, Recheck today's complaints, Continuance of care, Re-evaluation by your physician Discharge Instructions: - Discharge Summary Sheet kdr - Musculoskeletal Pain kdr - Hip Pain kdr - How to Use Cold Therapy kdr - Joint Pain, [id number] kdr Forms: - Medication Reconciliation Form kdr - Thank You Letter kdr - Prescription Opioid Use kdr Prescriptions: - Cyclobenzaprine 10 mg Oral Tablet - take 1 tablet by ORAL route every 8 hours As needed; 30 tablet; Refills: 0, kdr Product Selection Permitted - Tylenol-Codeine #3 300 mg-30 mg Oral - take 1 tablet by ORAL route every 6 hours As needed; 16 tablet; Refills: 0, kdr Product Selection Permitted Signatures: Dispatcher [employer] Low Javier MD MD kdr Cecy Perez RN RN db
[2022-12-23 17:52] VITALS: TEMP 98.5
[2022-12-23 18:04] VITALS: BP 173/79; O2SAT 99
== END 2022-12-23 17:37 | disposition home or self-care (01) ==
LOC: ER 13:38
DX: M25.552 Pain in left hip (principal); I10 Essential (primary) hypertension; Z88.6 Allergy status to analgesic agent
CPT/HCPCS: 96365; 73700; 72170; 73502; 96375; 99284; J2405; J2800